=== PATIENT | female | born 1990 | race Caucasian/White ===

== ENCOUNTER → 2021-06-20 07:17 | Outpatient (CLI) | payer OTHER, SELFPAY ==
--- NOTE | ~2021-06-20 | MR_ITS ---
EXAMINATION: MR ankle LT wo con DATE: 06/20/2021 08:06 INDICATION: Left ankle sprain. TECHNIQUE: Magnetic resonance imaging (MRI) of the left ankle was performed without intravenous contr ast. Sequences included sagittal PD-weighted FS FSE, sagittal PD-weighted FSE, coronal PD-weighted FS FSE, coronal PD-weighted FSE, axial PD-weighted FS FSE, and axial PD-weighted FSE. COMPARISON: Left ankle radiographs 05/29/2016 FINDINGS: Medial ankle ligaments: The superficial and deep components of the deltoid ligament are normal. Lateral ankle ligaments: There are changes of prior sprains of anterior talofibular ligament and calcaneofibular ligament stacey acterized by thickening and increased signal intensity. Posterior talofibular ligament is normal. The re are changes of prior sprain of anterior tibiofibular ligament characterized by increased signal in tensity. Posterior tibiofibular ligament is normal. Tendons: The medial and anterior ankle tendons are normal. There is mild tenosynovitis of the common peroneal tendon sheath. Achilles tendon is normal. Plantar fascia: Normal. Bones/other: Bone alignment is normal. No fracture. The talar dome is normal. Fluid: There is no joint effusion. IMPRESSION: 1. Changes of mild lateral ankle sprain. 2. Mild common peroneal tenosynovitis. Reviewed, dictated and finalized at location A. ENT FOLDER
== END ==
PROVIDERS: PCP Family Medicine; Visit Provider Podiatrist Foot & Ankle Surgery
DX: S93.402A Sprain of unspecified ligament of left ankle, initial encounter (principal)
CPT/HCPCS: 73721

== ENCOUNTER 2021-09-22 19:48 | Emergency (ER) | payer OTHER, SELFPAY ==
--- NOTE | ~2021-09-22 | XR_ITS ---
EXAMINATION: XR ankle LT 2V DATE: 09/22/2021 20:22 INDICATION: Left ankle injury and swelling. TECHNIQUE: 2 views of left ankle were obtained. COMPARISON: Left ankle radiographs 05/29/2016 FINDINGS: Bone alignment is normal. No fracture. Joint spaces are well maintained. There is lateral a nkle soft tissue swelling. IMPRESSION: 1. No fracture. Reviewed, dictated and finalized at location E. SOFTWARE TESTER IMPRESSION: 1. No fracture.
[2021-09-22 19:50] VITALS: BP 129/76; PULSE 107; RESP 18; TEMP 36.3; O2SAT 100
--- NOTE | 2021-09-22 20:32 | ED.LOWEXIN ---
HPI - Extremity Injury (Lower) General Chief Complaint: Extremity Injury, Lower Stated Complaint: Left ankle pain Time Seen by Provider: 09/22/21 19:55 History of Present Illness HPI Narrative: Patient is a 31-year-old female who presents ER with left ankle pain. Patient was going down a step when she twisted her ankle. She has swelling to the lateral malleolus. Has pain with attempts to bear weight. No numbness or tingling. She did not strike her head or lose consciousness. Related Data Allergies Allergy/AdvReac Type Severity Reaction Status Date / Time No Known Allergies Allergy Mild Verified 10/31/07 15:14 Review of Systems Review of Systems: All systems reviewed & are unremarkable except as noted in HPI and below Musculoskeletal: Musculoskeletal: Reports arthralgias, Reports joint swelling and Denies muscle cramps Neurologic: Denies headache(s), Denies focal weakness and Denies numbness PMFSH Past Medical History Medical History (Updated 09/22/21 @ 20:42 by Kenneth Oneill MD) Healthy female adult Surgical History Surgical History (Updated 09/22/21 @ 20:42 by Kenneth Oneill MD) No pertinent past surgical history Social History Social History Smoking status: Light tobacco smoker Alcohol intake: current Exam Narrative: GENERAL: Well-appearing, well-nourished, and in no acute distress. HEAD: Normocephalic, atraumatic. HEART: Regular rate and rhythm. No murmur heard. Normal peripheral pulses. EXTREMITIES: Normal range of motion. Swelling lateral malleolus with tenderness over the fibula distally as well as ATFL. Distal pulses and sensation. SKIN: Warm, dry, no rash. NEURO: No focal deficits. Alert and oriented x3. PSYCH: Normal mood and affect. Course Course Emergency Course: Informed results. Declines crutches and Melchor wrap. Discharge home. Vital Signs Vital signs: Vital Signs Temperature 97.4 F L 09/22/21 19:50 Pulse Rate 107 H 09/22/21 19:50 Respiratory Rate 18 09/22/21 19:50 Blood Pressure 129/76 09/22/21 19:50 Pulse Oximetry 100 09/22/21 19:50 Temperature 97.4 F L 09/22/21 19:50 Pulse Rate 107 H 09/22/21 19:50 Respiratory Rate 18 09/22/21 19:50 Blood Pressure 129/76 09/22/21 19:50 Pulse Oximetry 100 09/22/21 19:50 MDM - Extremity Injury (Lower) Imaging Data Radiologist's impression: ITS Impressions Ankle X-Ray 09/22/21 20:23 IMPRESSION: 1. No fracture. Discharge Plan Discharge Clinical Impression: Ankle sprain and strain Patient Disposition: Home, Self-Care Condition: Stable Instructions: Ankle Sprain (ED), P.R.I.C.E. Treatment (ED) Additional Instructions: Return to the ER if you have new injury, you have chest pain or shortness of breath, you have redness and swelling to your lower extremity, you have additional concerns. Prescriptions: New naproxen 375 mg tablet 375 mg PO BID Qty: 14 RF: 0 Follow-up/Referrals: Re,Charo Melo MD [Primary Care Provider] -
--- NOTE | 2021-09-22 20:44 | PC.NURSE ---
Patient refused crutches.
== END 2021-09-22 20:37 | disposition home or self-care (01) ==
PROVIDERS: Emergency Provider Emergency Medicine; PCP Family Medicine
DX: S93.402A Sprain of unspecified ligament of left ankle, initial encounter (principal); S96.912A Strain of unspecified muscle and tendon at ankle and foot level, left foot, initial encounter; F17.200 Nicotine dependence, unspecified, uncomplicated; X50.9XXA Other and unspecified overexertion or strenuous movements or postures, initial encounter
CPT/HCPCS: 73600; 99283